=== PATIENT | female | born 1990 | race Caucasian/White ===

== ENCOUNTER 2023-07-28 13:37 | Inpatient (IN) | payer MEDICARE, MEDICAID, SELFPAY ==
[2023-07-28 13:49] VITALS: BMI 35.5
[2023-07-28 13:58] VITALS: BP 120/81; PULSE 86; RESP 16; TEMP 36.9; O2SAT 96
--- NOTE | 2023-07-28 14:59 | PC.NURSE ---
Patient at window, talking about the G5 dimensions. Patient states that God is level 1. she currently is at level 4.
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
--- NOTE | 2023-07-28 16:24 | PC.NURSE ---
Patient was taking [place] Carb. 300mg, 4 capsuls daily at bedtime. Patient reports the last time she took this was one week ago. Per Dr. Stovall, we are to check her lithium level and start patient on lithium 300mg BID.
[2023-07-28 19:48] LABS: Lithium 0.3 mmol/L (0.6-1.2)
[2023-07-28 20:35] VITALS: BP 127/89; PULSE 73; RESP 18; TEMP 36.9; O2SAT 99
[2023-07-28] MEDS: lithium carbonate 300 mg Capsule PO (21:08)
[2023-07-29 06:00] VITALS: BP 129/84; PULSE 112; RESP 16; O2SAT 98
[2023-07-29] MEDS: levothyroxine 75 mcg Tablet 37.5 MCG PO (06:12)
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
--- NOTE | 2023-07-29 09:23 | PC.NURSE ---
Patient refused morning [place] 300mg. Patient stated that she doesn't take lithium in the morning and the reason is because, what occurs in the night will be revealed in the day . This nurse attempted to get patient to take the medication. Despite efforts, patient still refused. Patient stated that she doesn't want an doctor because she is a Mandaeism. This nurse informed patient that she would not be discriminated against because of her gnosticist beliefs. Patient stated that they would still be biased .
--- NOTE | 2023-07-29 09:28 | PC.NURSE ---
After calling her boyfriend, patient decided to take [place] 300mg. Patient took the medication with no issue, then returned to her room.
[2023-07-29] MEDS: lithium carbonate 300 mg Capsule PO ×2 (09:30→20:27)
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
[2023-07-29 13:12] VITALS: BP 129/88; PULSE 84; RESP 17; TEMP 36.6; O2SAT 97
--- NOTE | 2023-07-29 17:06 | PC.NURSE ---
Patient came to window and asked staff to read something she had written in her notebook. Patient wrote: The people that think they are winning and thriving are doing so under Anti-[employer]. Patient stated that she feels like that juaquin is coming soon and that the righteous are working under the anti-gui.
[2023-07-29 20:09] VITALS: BP 130/85; PULSE 96; RESP 16; TEMP 36.6; O2SAT 96
[2023-07-30 06:00] VITALS: BP 124/79; PULSE 87; RESP 16; O2SAT 97
[2023-07-30] MEDS: levothyroxine 75 mcg Tablet 37.5 MCG PO (06:21)
[2023-07-30 12:01] VITALS: BP 132/80; PULSE 107; RESP 20; TEMP 36.6; O2SAT 98
--- NOTE | 2023-07-30 17:24 | P.NPUPN_ITS ---
Subjective NPU Subjective: The patient is a 32-year-old white female with bipolar disorder with psychotic symptoms who admitted to having stopped her lithium for 3 to 4 days prior to her admission. She had continued to describe having belonged to a special group of followers known as Seekists. She reported that she did not wish to have any other additional medication stating that this medication, lithium, had been helpful for her in the past. The patient reported no depressed mood at this time. Patient reported no side effects from her medication. She reported having cyclical periods of ector for several years and reported in the past having a psychotic break. Mental Status Exam MSE Comments: This is an healthy, white female, in hospital scrubs, with limited grooming and eye contact. No abnormal movements, except for mild psychomotor retardation. Cooperative with exam in mild distress. Speech was normal rate and volume. Mood described as okay; Her affect was flat. Thought process, organized. Thought content: patient denied any suicidal or homicidal ideation,There was the presence of bizarre delusions and odd nonsensical beliefs. Patient denied any auditory or visual hallucinations. Attention and concentration appeared intact, and unclear if memory is reliable, but none were formally tested. Alert and oriented times three. Insight and judgment appear impaired. Impulse control is impaired. Vitals/I&O/Wt Last Vital Signs Temp 97.8 F 07/30/23 12:01 Pulse 107 H 07/30/23 12:01 Resp 20 H 07/30/23 12:01 BP 132/80 07/30/23 12:01 Pulse Ox 98 07/30/23 12:01 O2 Del Method Room Air 07/30/23 06:00 Weight last 48 hrs Weight 103.079 kg A&P Assessment and plan (1) Bipolar disorder with psychotic features: (2) Delusions: Plan This is a 32-year-old, white female, with possible genetic loading for mental health issues, with a long history of mental health issues and several psychiatric hospitalizations, who presents after not having her medication for several days after she left the home because she thought her was trying to kill her. 1. Restarted [place] 1200mg at night, patient may benefit from additional medication to target psychosis. 2. Encourage individual, group, and milieu therapy. 3. Continue q-15-minute checks for safety. Involuntary Hold Information 96 Hour Hold: 96 Hour Involuntary Admission: No Attestations NPU Medical Necessity Statement*: Inpatient hospitalization is medically necessary and the clinically appropriate intervention, at this time. We will monitor medications and make changes as indicated. The patient's likely length of stay is three to five days. Coding Level of Care Code Acute Code for g Fwd Diagnoses Bipolar disorder with psychotic features F31.9 Delusions F22
[2023-07-30 19:30] VITALS: BP 118/74; PULSE 91; RESP 16; TEMP 36.4; O2SAT 96
[2023-07-30] MEDS: lithium carbonate 300 mg Capsule 1200 MG PO (20:32)
[2023-07-31 06:00] VITALS: BP 109/75; PULSE 81; RESP 15; TEMP 36.6; O2SAT 97
[2023-07-31] MEDS: levothyroxine 75 mcg Tablet 37.5 MCG PO (06:23)
[2023-07-31 13:46] VITALS: BP 104/69; PULSE 99; RESP 17; TEMP 36.6; O2SAT 98
[2023-07-31] MEDS: lithium carbonate 300 mg Capsule PO ×2 (15:09→20:39)
--- NOTE | 2023-07-31 18:18 | W.PM.NPUPNS ---
Subjective NPU Subjective: The patient is a 32-year-old white female with bipolar disorder with psychotic symptoms who admitted to having stopped her lithium for 3 to 4 days prior to her admission. The patient had continued to describe being part of a special group that sought answers through [employer]. She had acknowledged that her mood had not been stabilized despite taking her lithium as prescribed. She had reported that her thoughts were no longer racing. She had been agreeable to considering a medication to target her psychosis . The patient had been able to attend groups. She had reported that her outpatient doctor had struggled to get her dosing of lithium to a therapeutic level and stated that the patient was taking all of her lithium at night instead of in divided doses. She reported no insomnia last night. Mental Status Exam MSE Comments: This is an healthy, white female, in hospital scrubs, with limited grooming and eye contact. No abnormal movements, except for mild psychomotor retardation. She was cooperative with exam in mild distress. Speech was normal rate and volume. Mood described as better. Her affect was blunted. Thought process was linear and organized. Thought content: patient denied any suicidal or homicidal ideation. There was the presence of bizarre delusions and odd nonsensical beliefs. Patient denied any auditory or visual hallucinations. Attention and concentration appeared intact, and unclear if memory is reliable, but none were formally tested. Alert and oriented times three. Insight and judgment appear impaired. Impulse control is impaired. Vitals/I&O/Wt Last Vital Signs Temp 97.9 F 07/31/23 13:46 Pulse 99 07/31/23 13:46 Resp 17 07/31/23 13:46 BP 104/69 07/31/23 13:46 Pulse Ox 98 07/31/23 13:46 O2 Del Method Room Air 07/31/23 06:00 Weight last 48 hrs Weight 103.079 kg A&P Assessment and plan (1) Bipolar disorder with psychotic features: (2) Delusions: Plan This is a 32-year-old, white female, with possible genetic loading for mental health issues, with a long history of mental health issues and several psychiatric hospitalizations, who presents after not having her medication for several days after she left the home because she thought her was trying to kill her. 1. Switch to [place] 300mg tid with plan to get lithium level in 5-7 days. Add abilify 5mg daily to target psychosis. 2. Encourage individual, group, and milieu therapy. 3. Continue q-15-minute checks for safety. Involuntary Hold Information 96 Hour Hold: 96 Hour Involuntary Admission: No Attestations NPU Medical Necessity Statement*: Inpatient hospitalization is medically necessary and the clinically appropriate intervention, at this time. We will monitor medications and make changes as indicated. The patient's likely length of stay is five to seven days. Coding Level of Care Code Acute Code for [facility] Diagnoses Bipolar disorder with psychotic features F31.9 Delusions F22
[2023-07-31 20:29] VITALS: BP 111/77; PULSE 94; RESP 18; TEMP 37.1; O2SAT 95
[2023-08-01 06:00] VITALS: BP 111/79; PULSE 85; RESP 17; TEMP 36.8; O2SAT 95
[2023-08-01] MEDS: levothyroxine 75 mcg Tablet 37.5 MCG PO (06:25)
[2023-08-01] MEDS: lithium carbonate 300 mg Capsule PO ×3 (08:23→19:48)
[2023-08-01] MEDS: ARIPiprazole 10 mg Tablet 5 MG PO ×2 (08:23→19:47)
--- NOTE | 2023-08-01 09:20 | PC.NURSE ---
IN BED AROUSES TO VOICE. PT DENIES PAIN, SI/HI AND AVH AT THIS TIME. PT CONTINUES TO ISOLATE TO ROOM AND IS WITHDRAWN. PT DOES NOT INTERACT WITH PEERS OR STAFF. PT WAS ENCOURAGED TO GO TO GROUPS AND GET OUT OF ROOM TO INTERACT WITH PEERS. PT CONTINUES TO LAY IN BED AND ROLLED OVER AND WENT TO BED.
[2023-08-01 14:00] VITALS: BP 120/77; PULSE 91; RESP 18; TEMP 36.6; O2SAT 97
[2023-08-01] MEDS: sennosides-docusate Tablet 1 TAB PO (18:41)
--- NOTE | 2023-08-01 19:01 | P.NPUPN_ITS ---
Subjective NPU Subjective: The patient is a 32-year-old white female with bipolar disorder with psychotic symptoms who admitted to having stopped her lithium for 3 to 4 days prior to her admission. The patient reported no side effects from the Abilify. She was agreeable to considering taking medications to manage her psychosis that appeared to be occurring in the context of ector at least 1 time per year for at least 20 years. She reported that the lithium had apparently been helpful but had not extended out the time. To the next manic episode as a single agent alone. She had reported that she was amenable to a trial of an alternative medication. She appeared less preoccupied by being a seeker. Patient was redirectable on the milieu but continued to isolate herself at times. she had minimized a history of depressed mood or any prior history of depressive episode over the last 20 years but reported that the manic episodes had occurred with increased duration and frequency on the lithium alone. Mental Status Exam MSE Comments: This is an healthy, white female, in hospital scrubs, with limited grooming and eye contact. No abnormal movements, except for mild psychomotor retardation. She was cooperative with exam in mild distress. Speech was normal rate and volume. Mood described as better. Her affect remained blunted. Thought process was linear and organized. Thought content: patient denied any suicidal or homicidal ideation. There was presence of some continued delusions and overvalued ideas. Patient denied any auditory or visual hallucinations. Attention and concentration appeared intact, and unclear if memory is reliable, but none were formally tested. Alert and oriented times three. Insight was improving and judgment appear impaired. Impulse control is impaired. Vitals/I&O/Wt Last Vital Signs Temp 97.9 F 08/01/23 14:00 Pulse 91 08/01/23 14:00 Resp 18 08/01/23 14:00 BP 120/77 08/01/23 14:00 Pulse Ox 97 08/01/23 14:00 O2 Del Method Room Air 08/01/23 06:00 A&P Assessment and plan (1) Bipolar disorder with psychotic features: (2) Delusions: Plan This is a 32-year-old, white female, with possible genetic loading for mental health issues, with a long history of mental health issues and several psychiatric hospitalizations, who presents after not having her medication for several days after she left the home because she thought her was trying to kill her. 1. Continue [place] 300mg tid with plan to get lithium level in 5-7 days. Increase Abilify to 10mg daily. 2. Encourage individual, group, and milieu therapy. 3. Continue q-15-minute checks for safety. Involuntary Hold Information 96 Hour Hold: 96 Hour Involuntary Admission: No Attestations NPU Medical Necessity Statement*: Inpatient hospitalization is medically necessary and the clinically appropriate intervention, at this time. We will monitor medications and make changes as indicated. The patient's likely length of stay is five to seven days. Coding Level of Care Code Acute Code for [facility] Fwd Diagnoses Bipolar disorder with psychotic features F31.9 Delusions F22
[2023-08-01 20:29] VITALS: BP 109/75; PULSE 92; RESP 17; TEMP 36.6; O2SAT 95
[2023-08-02 06:00] VITALS: BP 106/75; PULSE 91; RESP 18; TEMP 36.8; O2SAT 97
[2023-08-02] MEDS: levothyroxine 75 mcg Tablet 37.5 MCG PO (06:20)
--- NOTE | 2023-08-02 07:54 | PC.NURSE ---
Patient denies avh and si/hi this morning. She states she slept well and plans on attempting to stay awake more during the day and nap less. While she denies depression or anxiety, she does appear a bit sad and worried that she has to go home to her significant other. She states she feels like she is crazy and is only going back to her home because she feels her significant other will attempt to take custody of her child if she leaves.
[2023-08-02] MEDS: ARIPiprazole 10 mg Tablet PO (08:55)
[2023-08-02] MEDS: lithium carbonate 300 mg Capsule PO ×3 (08:55→21:10)
[2023-08-02 14:00] VITALS: BP 110/69; PULSE 92; RESP 15; TEMP 36.9; O2SAT 96
--- NOTE | 2023-08-02 17:38 | P.NPUPN_ITS ---
Subjective NPU Subjective: The patient is a 32-year-old white female with bipolar disorder with psychotic symptoms who admitted to having stopped her lithium for 3 to 4 days prior to her admission. Patient continued to state that her was not nice on his visit. She had continued to endorse that somehow he may have been the reason that she had been here in the hospital. She had perseverated less regarding her special abilities as a seeker and appeared less religiously preoccupied. The patient reported no side effects from the Abilify. She reported feeling less tired today with the lithium in divided doses. She was able to attend groups. She denied any ector today. The had spoken with the high school social studies teacher and had indicated that the patient's episodes have been occurring more frequently over the last year despite compliance with lithium. Mental Status Exam MSE Comments: This is an healthy, white female, in hospital scrubs, with limited grooming and eye contact. No abnormal movements, except for mild psychomotor retardation. She was cooperative with exam in mild distress. Speech was normal rate and volume. Mood described as okay. Her affect remained blunted. Thought process was linear and organized. Thought content: patient denied any suicidal or homicidal ideation. There was presence of some continued muslim delusions and overvalued ideas. Patient denied any auditory or visual hallucinations. Attention and concentration appeared intact, and unclear if memory is reliable, but none were formally tested. Alert and oriented times three. Insight was improving and judgment appear impaired. Impulse control is impaired. Vitals/I&O/Wt Last Vital Signs Temp 98.5 F 08/02/23 14:00 Pulse 92 08/02/23 14:00 Resp 15 08/02/23 14:00 BP 110/69 08/02/23 14:00 Pulse Ox 96 08/02/23 14:00 O2 Del Method Room Air 08/02/23 06:00 A&P Assessment and plan (1) Bipolar disorder with psychotic features: (2) Delusions: Plan This is a 32-year-old, white female, with possible genetic loading for mental health issues, with a long history of mental health issues and several psychiatric hospitalizations, who presents after not having her medication for several days after she left the home because she thought her was trying to kill her. 1. Continue [place] 300mg tid with plan to get lithium level in 5-7 days. Continue Abilify at 10mg daily with likely titration in 2 days. 2. Encourage individual, group, and milieu therapy. 3. Continue q-15-minute checks for safety. Involuntary Hold Information 96 Hour Hold: 96 Hour Involuntary Admission: No Attestations NPU Medical Necessity Statement*: Inpatient hospitalization is medically necessary and the clinically appropriate intervention, at this time. We will monitor medications and make changes as indicated. The patient's likely length of stay is 4-5 days. Coding Level of Care Code Acute Code for [facility] Diagnoses Bipolar disorder with psychotic features F31.9 Delusions F22
[2023-08-02 20:05] VITALS: BP 111/73; PULSE 83; RESP 16; TEMP 36.9; O2SAT 97
[2023-08-03 06:00] VITALS: BP 98/65; PULSE 95; RESP 16; TEMP 36.8; O2SAT 95
[2023-08-03] MEDS: levothyroxine 75 mcg Tablet 37.5 MCG PO (06:27)
[2023-08-03] MEDS: lithium carbonate 300 mg Capsule PO ×3 (08:18→19:59)
[2023-08-03] MEDS: ARIPiprazole 10 mg Tablet PO (08:18)
[2023-08-03 14:00] VITALS: BP 109/76; PULSE 85; RESP 17; TEMP 36.8; O2SAT 97
--- NOTE | 2023-08-03 17:10 | P.NPUPN_ITS ---
Subjective NPU Subjective: The patient is a 32-year-old white female with bipolar disorder with psychotic symptoms who admitted to having stopped her lithium for 3 to 4 days prior to her admission. Patient reported that her thoughts were not racing. She had continued to describe having unusual perceptions but appeared less focused on her abilities as a Jainism. The patient had minimized any depression. The patient had reported feeling less fatigued with the lithium but did report feeling tired in the daytime. Patient had isolated herself on the milieu but was able to attend groups. Mental Status Exam MSE Comments: This is an healthy, white female, in hospital scrubs, with poor grooming, unkempt hair and fair eye contact. No abnormal movements, except for mild psychomotor retardation. She was cooperative with exam in mild distress. Speech was normal rate and volume. Mood described as okay. Her affect remained flat. Thought process was linear and organized. Thought content: patient denied any suicidal or homicidal ideation. There was less restorationist preoccupation. Patient denied any auditory or visual hallucinations. Attention and concentration appeared intact, and unclear if memory is reliable, but none were formally tested. Alert and oriented times three. Insight was improving and judgment appear impaired. Impulse control is impaired. Vitals/I&O/Wt Last Vital Signs Temp 98.3 F 08/03/23 14:00 Pulse 85 08/03/23 14:00 Resp 17 08/03/23 14:00 BP 109/76 08/03/23 14:00 Pulse Ox 97 08/03/23 14:00 O2 Del Method Room Air 08/03/23 06:00 A&P Assessment and plan (1) Bipolar disorder with psychotic features: (2) Delusions: Plan This is a 32-year-old, white female, with possible genetic loading for mental health issues, with a long history of mental health issues and several psychiatric hospitalizations, who presents after not having her medication for several days after she left the home because she thought her was trying to kill her. 1. Continue [place] 300mg tid with plan to get lithium level in 2 days. Continue Abilify at 10mg daily with likely titration in 2 days. 2. Encourage individual, group, and milieu therapy. 3. Continue q-15-minute checks for safety. Involuntary Hold Information 96 Hour Hold: 96 Hour Involuntary Admission: No Attestations NPU Medical Necessity Statement*: Inpatient hospitalization is medically necessary and the clinically appropriate intervention, at this time. We will monitor medications and make changes as indicated. The patient's likely length of stay is 2-3 days. Coding Level of Care Code Acute Code for [facility] Fwd Diagnoses Bipolar disorder with psychotic features F31.9 Delusions F22
[2023-08-03 22:00] VITALS: BP 99/66; PULSE 84; RESP 16; TEMP 36.7; O2SAT 98
[2023-08-04] MEDS: levothyroxine 75 mcg Tablet 37.5 MCG PO (05:16)
[2023-08-04 06:00] VITALS: BP 105/74; PULSE 66; RESP 20; TEMP 36.8; O2SAT 98
[2023-08-04] MEDS: lithium carbonate 300 mg Capsule PO ×3 (08:39→21:05)
[2023-08-04] MEDS: ARIPiprazole 10 mg Tablet PO (08:39)
[2023-08-04 14:00] VITALS: BP 105/73; PULSE 78; RESP 15; TEMP 36.1; O2SAT 96
[2023-08-04 15:53] LABS: Add Urine Microscopic? NO; Charge for UA Resulting for Rev
[2023-08-04 16:12] LABS: Bilirubin Urine Neg (Negative); Blood Urine Neg (Negative); Glucose Urine UA Norm (Normal); Ketones Urine Negative (Negative); Leukocyte Esterase Urine Negative (Negative); Nitrate Urine Negative (Negative); Protein Urine Neg (Negative); Sulfosalicylic Acid Urine Negative (Negative); Urine Appearance Clear (CLEAR); Urine Color Yellow (Yellow); Urobilinogen Urine Norm (Negative); pH Urine 8 (5-7)
--- NOTE | 2023-08-04 16:53 | P.NPUPN_ITS ---
Subjective NPU Subjective: The patient is a 32-year-old white female with bipolar disorder with psychotic symptoms who admitted to having stopped her lithium for 3 to 4 days prior to her admission. patient reported feeling better. She appeared less preoccupied with methodist ideas. She had to continue to isolate herself. She reported no side effects from her medication. She had minimized any problems with fatigue today. She had denied any depression. She had reported no sleep continuity disruption last night. Mental Status Exam MSE Comments: This is an healthy, white female, in hospital scrubs, with poor grooming and fair eye contact. No abnormal movements, except for mild psychomotor retardation. She was cooperative with exam in mild distress. Speech was normal rate and volume. Mood described as better. Her affect appeared brighter today. Thought process was linear and organized. Thought content: patient denied any suicidal or homicidal ideation. There was no methodist preoccupation with no overvalued ideas appreciated. Patient denied any auditory or visual hallucinations. Attention and concentration appeared intact. Recent and remote memory were grossly intact today. She was alert and oriented times three. Insight was improving and judgment appear impaired. Impulse control is improving. Vitals/I&O/Wt Last Vital Signs Temp 98.2 F 08/04/23 06:00 Pulse 66 08/04/23 06:00 Resp 20 H 08/04/23 06:00 BP 105/74 08/04/23 06:00 Pulse Ox 98 08/04/23 06:00 O2 Del Method Room Air 08/04/23 06:00 A&P Assessment and plan (1) Bipolar disorder with psychotic features: (2) Delusions: Plan This is a 32-year-old, white female, with possible genetic loading for mental health issues, with a long history of mental health issues and several psychiatric hospitalizations, who presents after not having her medication for several days after she left the home because she thought her was trying to kill her. 1. Continue [place] 300mg tid with plan to get lithium level in tommorow and likely discharge. Increase abilify to 15mg daily. 2. Encourage individual, group, and milieu therapy. 3. Continue q-15-minute checks for safety. Involuntary Hold Information 96 Hour Hold: 96 Hour Involuntary Admission: No Attestations NPU Medical Necessity Statement*: Inpatient hospitalization is medically necessary and the clinically appropriate intervention, at this time. We will monitor medications and make changes as indicated. The patient's likely length of stay is 1-2 days. Coding Level of Care Code Acute Code for g Fwd Diagnoses Bipolar disorder with psychotic features F31.9 Delusions F22
[2023-08-04 19:54] VITALS: BP 123/81; PULSE 71; RESP 18; TEMP 36.7; O2SAT 97
[2023-08-05] MEDS: ondansetron 4 MG Tablet PO (03:11)
[2023-08-05 06:00] VITALS: BP 115/79; PULSE 75; RESP 18; TEMP 36.6; O2SAT 97
[2023-08-05] MEDS: levothyroxine 75 mcg Tablet 37.5 MCG PO (06:27)
[2023-08-05 08:06] LABS: Lithium 0.5 mmol/L (0.6-1.2)
[2023-08-05] MEDS: ARIPiprazole 10 mg Tablet 15 MG PO (08:07)
[2023-08-05] MEDS: lithium carbonate 300 mg Capsule PO (08:08)
[2023-08-05 09:44] VITALS: BP 115/79; PULSE 75; RESP 18; TEMP 36.6; O2SAT 97
--- NOTE | 2023-08-05 10:03 | W.PM.NPUDCS ---
Diagnoses at Discharge Discharge Diagnosis (1) Bipolar disorder with psychotic features: Status: Acute (2) Delusions: Status: Acute Reason for Visit Reason for Visit: Liza Brief History: History of Present Illness Mary Cleary is a 32 year old female who presented to the outside hospital with psychosis and delusional thinking and was placed on a 96-hour hold and transferred to [facility] and admitted to the neuropsychiatric unit for definitive treatment of those issues. The patient presents today reporting that she has been on lithium 1200 mg at bedtime, but she has missed four to five days. She reports that she is on hormone replacement therapy and levothyroxine. The patient reports that she is here because she thought her spouse was trying to kill her because he thought she was an alien. She referred to this being related to the Bible and the genocide that is going on. But she reports that she is not reading anything in the Bible, reporting that she is a Seek, stating that ?Seekism,? like Quakerism, is that you ask why something is going on and it gives you the answer, by googling it. She reports that she has had this ability since 2016. She reports that there was something given to her in google that made her think her was trying to kill her, but now she knows that is not true, because he was awoken. The patient reports that she has had about five psychiatric hospitalizations, the last time was two to three years ago, the first time was when she was around 19 years old. She reports that she sees Dr. Carranza at [facility]. She denies other medications besides lithium. She reports that she ran from her house, so she did not have access to her medication. The patient denies tobacco, alcohol, marijuana, cocaine, opiates, methamphetamine, or any other illicit drug use. She reports that she tried LSD once. She denies drug rehabilitation, DUI, or other drug related charges. The patient reports that, prior to 2016, she was not even interested in spirituality or bahai. She reports that she was diagnosed with generalized anxiety disorder in her teens, and still experiences that. Her anxiety is more cognitive. She denies depression. She endorses nightmares and issues with past experiences. She denies obsessive compulsive symptoms. She denies auditory or visual hallucinations. She endorses paranoia. PSYCHIATRIC HISTORY: As above. SUBSTANCE ABUSE HISTORY: As above.? FAMILY HISTORY: The patient reports that she doesn?t really know her family history because they have not been honest with themselves, but they do have a lot of issues, so she endorses mental health issues on both sides of the family. She is not sure about addiction issues in her family. She denies suicide attempts or completions in her family. DEVELOPMENTAL HISTORY: The patient reports that she had RSV. The patient reports learning to walk and talk and meeting developmental milestones on time. The patient endorses speech therapy, and she denies learning support, emotional support, or special education classes. PSYCHOSOCIAL HISTORY: The patient reports that her mother and father were not together at her . She reports that there are no other children from that union. She reports that her mother has two other children, two boys who are older. She reports that her father has another girl. She describes her childhood as tumultuous and unstable. She endorses neglect and emotional abuse. She denies physical or sexual abuse. She denies CPS involvement. She endorses trauma and nightmares. She reports that she got her GED; she went to 10th grade. She endorses being heterosexual, with her longest relationship being seventeen years. She reports she has not been officially and has no biological children. She has not been in the . She endorses ?Seekism? and Quakerism, ?which is the westernized version.? 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 She is currently not employed. She currently lives in a house with her boyfriend of seventeen years and her 5-year-old daughter, who she reports she gave to but is not biologically related to, because there was an egg donor. Explained to the patient that is not actually true because of mitochondrial DNA. LEGAL HISTORY: Denied. MEDICAL HISTORY: The patient endorses allergy to Trazodone, reporting it ?jennings up her body? and feels really bad. The patient reports that she has thyroid problems. She had a vaginal delivery. She reports that she started her menses at age 11. 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 Hospital Course Hospital Course During the hospitalization, the patient had routine laboratory studies which were within normal limits except for a few outliers.? Additionally, there was a general medical evaluation which was also within normal limits and revealed no new acute processes.? At the time of discharge, lethality was denied and psychosis was resolving.? Mood and anxiety were well managed.? The patient endorsed a plan to avoid all drugs of abuse and follow up with the aftercare recommendations of the treatment team.? The patient was evaluated and deemed to be absent credible lethality and had achieved the maximum benefit from an inpatient hospitalization, and so was discharged.? [place] was reduced from 1200mg/day to 300mg tid and lithium level was .5 at discharge. Abilify was started and titrated up to 15mg daily prior to discharge with improvement in mood and resolution in psychotic symptoms. Involuntary Hold Information 96 Hour Hold: 96 Hour Involuntary Admission: No Mental Status Exam MSE Comments: This is an healthy, white female, in hospital scrubs, with improved grooming and fair eye contact. No abnormal movements, except for mild psychomotor retardation. She was cooperative with exam in mild distress. Speech was normal rate and volume. Mood described as better. Her affect appeared bright on discharge. Thought process was linear and organized. Thought content: patient denied any suicidal or homicidal ideation. There was no bahai preoccupation with no overvalued ideas appreciated. Patient denied any auditory or visual hallucinations. Attention and concentration appeared intact. Recent and remote memory were grossly intact today. She was alert and oriented times three. Insight was improving and judgment appeared better. Impulse control is improving. Discharge Data Studies Completed and Pending: Laboratory Results Urine Color Yellow (Yellow) 08/04/23 15:20 Urine Appearance Clear (CLEAR) 08/04/23 15:20 Urine pH 8 (5-7) H 08/04/23 15:20 Ur Specific Gravit y 1.020 (1.005-1.0 30) 08/04/23 15:20 Urine Protein Neg (Negative) 08/04/23 15:20 Urine Glucose (UA) Norm (Normal) 08/04/23 15:20 Urine Ketones Negative (Negati ve) 08/04/23 15:20 Urine Blood Neg (Negative) 08/04/23 15:20 Urine Nitrate Negative (Negati ve) 08/04/23 15:20 Urine Bilirubin Neg (Negative) 08/04/23 15:20 Prot Sulfosalicyli c Acd Negative (Negati ve) 08/04/23 15:20 Urine Urobilinogen Norm mg/dL (Negat neli) 08/04/23 15:20 Ur Leukocyte Clarisse ase Negative (Negati ve) 08/04/23 15:20 [place] 0.5 mmol/L (0.6-1 .2) L 08/05/23 07:03 Vitals: Last Vital Signs Temp 97.9 F 08/05/23 09:44 Pulse 75 08/05/23 09:44 Resp 18 08/05/23 09:44 BP 115/79 08/05/23 09:44 Pulse Ox 97 08/05/23 09:44 O2 Del Method Room Air 08/05/23 06:00 Discharge Plan Discharge Patient Disposition: Home Condition: Stable Prescriptions: New lithium carbonate 300 mg Capsule 300 mg PO TID 30 Days Qty: 90 1RF aripiprazole 10 mg Tablet 15 mg PO DAILY 30 Days Qty: 45 0RF lithium carbonate 300 mg capsule 300 mg PO DIRECTED Qty: 90 1RF Rx Instructions: Take one capsule in AM, two capsules at night Abilify 15 mg tablet 15 mg PO DAILY Qty: 30 0RF Continued [place] 0.1 mg/24 hr patch semiweekly See Rx Instructions .ROUTE .COMPLEX MDD 0.1 Rx Instructions: 0.1 mg transdermally ketoconazole 2 % shampoo See Rx Instructions .ROUTE .COMPLEX Rx Instructions: topically biweekly levothyroxine 25 mcg tablet 12.5 mcg PO 1XD progesterone micronized 200 mg capsule See Rx Instructions .ROUTE .COMPLEX Rx Instructions: 200 mg orally x 12 days progesterone micronized 200 mg capsule See Rx Instructions .ROUTE .COMPLEX Rx Instructions: 200 mg orally x 12 days Discontinued lithium carbonate 300 mg capsule 1,200 mg PO BEDTIME Discharge Orders: Discharge Order (Routine); Ordered 08/05/23 Ordered By: Royer Bernard Discharge Diet: Usual diet Discharge Activity: Resume usual activity Patient Instructions: [place] (By mouth), Aripiprazole (By mouth), Bipolar Disorder (DC), Opioid Safety Activity Restrictions/Additional Instructions: [place] level .5 on 08/05/23 Discharge Attestations NPU Time Spent in Discharge Care*: less than 30 min Specific Discharge Activities: Specific discharge activities: educating patient, discussing with case operator/social workers/dc planners and evaluating patient/reviewing data Coding Level of Care Code Acute Chg FW DC note Diagnoses Bipolar disorder with psychotic features F31.9 Delusions F22
== END 2023-08-05 10:50 | disposition home or self-care (01) | DRG 885 ==
PROVIDERS: Admitting Provider Psychiatry & Neurology Psychiatry; Visit Provider Psychiatry & Neurology Psychiatry
DX: F31.89 Other bipolar disorder (principal); Z91.148 Patient's other noncompliance with medication regimen for other reason; F22 Delusional disorders; Z62.811 Personal history of psychological abuse in childhood; E66.9 Obesity, unspecified; Z68.36 Body mass index [BMI] 36.0-36.9, adult; F28 Other psychotic disorder not due to a substance or known physiological condition
CPT/HCPCS: 36415; 80178; 81003; 97150; 97165; Q0162